=== PATIENT | male | born 1955 | race Caucasian/White ===

== ENCOUNTER 2017-09-01 12:58 | Emergency (ER) | payer OTHER ==
[~2017-09-01] VITALS: Ht 170.2 cm; Wt 65.8 kg
[2017-09-01 13:00] VITALS: TEMP 36.8; Ht 170.2 cm; Wt 65.8 kg
--- NOTE | 2017-09-01 14:03 | DIAGNOSTIC IMAGING REPORT ---
L WRIST MIN 3 VIEWS ROUTINE CLINICAL HISTORY: Fall. Left wrist injury. COMPARISON: None FINDINGS: Note is made of a markedly comminuted mildly displaced distal left radial fracture with intra-articular extension. There is no acute fracture of the distal left ulna. Carpal bones are intact. IMPRESSION: Mildly displaced markedly comminuted distal left radial fracture with intra-articular extension and several associated bone fragments. Electronically signed by: Reuben Phipps M.D. 09/01/2017 2:02 PM Dictated Date/Time: 09/01/2017 2:01 PM
[2017-09-01] MEDS ORDERED: HYDR-5688 PO (14:39)
[2017-09-01 15:02] VITALS: BP 131/76; PULSE 67; O2SAT 97
--- NOTE | 2017-09-02 08:03 | EMERGENCY ROOM VISIT NOTE ---
History First contact with patient: 13:04 Chief Complaint: WRIST PAIN Stated Complaint: WRIST PAIN History of Present Illness The patient is a 62 year old male who presents to the Emergency Room with complaints of left wrist pain for the past 2 days. The patient was evidently at home when he suffered a fall from his porch. He caught himself with his left hand and has had persistent pain since then. He is not complaining of other pain or injury. He is having difficulty opening and closing the hand because of the pain in the wrist. No elbow or shoulder discomfort. He has not had relief with [id number] medication. No previous injury to this extremity. He rates his discomfort a 5/10 that worsens with movement. Review of Systems More than 10 systems were reviewed and otherwise negative with the exception of history of present illness. Past Medical/Surgical History Medical Problems: (1) Bronchitis (2) Pneumonia Family History Patient reports no known family medical history. Social History Smoking Status: Never Smoker Marital Status: Occupation Status: retired Current/Historical Medications Scheduled PRN Hydrocodone/Acetaminophen 5MG/325MG ([place] 5MG/325MG), 1-2 TABLET PO Q6 PRN for Pain Physical Exam Vital Signs Date Time Temp Pulse Resp B/P (MAP) Pulse Ox O2 Delivery O2 Flow Rate FiO2 09/01/17 15:02 67 18 131/76 97 Room Air 09/01/17 13:00 36.8 71 18 130/75 96 Room Air Physical Exam VITALS: Vitals are noted on the nurse's note and reviewed by myself. Vital signs stable. GENERAL: Well-developed, well-nourished, white male, who is in no acute distress and resting comfortably. Patient is cooperative with the examination. HEART: Regular rate and rhythm without murmurs gallops or rubs. LUNGS: Clear to auscultation bilaterally without wheezes, rales or rhonchi. No retractions or accessory muscle use. MUSCULOSKELETAL: Patient is holding his left wrist with his right hand throughout the examination. The distal radius is acutely tender with mild deformity.. The patient has difficulty with range of motion secondary to discomfort. Neurovascular status of the distal hand appears intact. No distinct snuffbox tenderness. No tenderness of the elbow or shoulder. No significant laceration noted . NEURO: Patient was alert and oriented to person place and time. CN II through XII grossly intact. Medical Decision & Procedures ER Provider Diagnostic Interpretation: L WRIST MIN 3 VIEWS ROUTINE CLINICAL HISTORY: Fall. Left wrist injury. COMPARISON: None FINDINGS: Note is made of a markedly comminuted mildly displaced distal left radial fracture with intra-articular extension. There is no acute fracture of the distal left ulna. Carpal bones are intact. IMPRESSION: Mildly displaced markedly comminuted distal left radial fracture with intra-articular extension and several associated bone fragments. ED Course Physical exam and history were performed. Nursing notes, EMR, and Medication List were personally reviewed. Patient appears to have suffered a fall 2 days ago with subsequent injury to his left wrist. On examination he is exquisitely tender with mild deformity. X -ray was obtained and does show a fracture as described above. I discussed the case with on-call orthopedics, Dr Hutchinson, as there is concern the patient may need surgical intervention. Recommendation was for splint, sling, and pain medication. The orthopedic office will be contacting the patient directly this afternoon to arrange an appointment for tomorrow morning. The patient will also be given contact information for orthopedics. He is to see him tomorrow as recommended by orthopedics and was asked to contact the ER for any difficulty with making this appointment. The patient was otherwise invited back to the ER with any new, worsening, or concerning symptoms. The chart was completed utilizing [employer] Speech Voice Recognition Software. Grammatical errors, random word insertions, pronoun errors, and incomplete sentences are an occasional consequence of this system due to software limitations, ambient noise, and hardware issues. Any formal questions or concerns about the content, text, or information contained within the body of this dictation should be directly addressed to the provider for clarification. . Medical Decision Differential diagnosis includes, but is not limited to: Sprain, strain, fracture , dislocation, contusion, and others Blood Pressure Screening Patient's blood pressure: Normal blood pressure Impression Primary Impression: Left wrist fracture Departure Information Dispostion Home / Self-Care Condition GOOD Prescriptions Hydrocodone/Acetaminophen 5MG/325MG ([place] 5MG/325MG) Tab 1-2 TABLET PO Q6 Y for Pain, #15 TAB For Initial Treatment Prov: Luis M Montiel PA-C 09/01/17 Referrals Emigdio Hutchinson MD Forms HOME CARE DOCUMENTATION FORM, IMPORTANT VISIT INFORMATION Patient Instructions My [facility], ED Compartment Syndrome At Risk For, ED RICE Additional Instructions You were seen and evaluated today on an emergency basis only. This is not a substitute for, or an effort to provide, complete comprehensive medical care. It is not possible to recognize and treat all injuries or illnesses in a single emergency department visit. For this reason it is recommended that you followup with [facility] , Dr Hutchinson's Office. The office will try to call you today to make your appointment. For baseline pain relief you may alternate ibuprofen and acetaminophen every 4 hours for pain control. Take 600 mg ibuprofen (Advil) and then 4 hours later take 1000 mg acetaminophen (Tylenol). Do not take more than 3000 mg acetaminophen in a single day. [place] (hydrocodone/acetaminophen) 5/325 mg ONE or TWO every 6 hours as needed for worsening breakthrough pain. Do not drink or drive on [place]. This medication will likely make you tired. Do not take [place] and Tylenol at the same time as both contain acetaminophen. [place] may cause constipation. You may wish to take an fmop-yup-yjqlaso stool softener like Colace if this occurs. Do not get the splint wet. Use your sling for comfort. You are welcome to return to the emergency department anytime with new, worsening, or concerning symptoms.
[2017-09-04] MEDS ORDERED: ACET-1256 PO (12:23)
== END 2017-09-01 15:07 | disposition home or self-care (01) ==
LOC: C.EDB 12:59 → C.EDD 15:07
DX: S52.502A Unspecified fracture of the lower end of left radius, initial encounter for closed fracture (principal); W19.XXXA Unspecified fall, initial encounter; Y92.008 Other place in unspecified non-institutional (private) residence as the place of occurrence of the external cause; Z87.01 Personal history of pneumonia (recurrent)

== ENCOUNTER → 2017-09-08 | Day surgery (SDC) | payer OTHER ==
[2017-09-04 12:23] VITALS: Ht 170.2 cm; Wt 65.5 kg
[~2017-09-08] VITALS: Ht 170.2 cm; Wt 65.5 kg
[~2017-09-08] MED LIST: ACET-1256 PO; ATROPINE SULFATE 0.1 MG/ML 5ML SYR IV PRN; BUPIVACAINE/EPINEPHRINE 0.25% 1:200,000 30 ML VIAL ONE; CEFAZOLIN 2000MG IV PUSH 10 ML IV SCH; DEXAMETHASONE SOD INJ 4 MG/ML VIAL ONE; EpHEDrine SULFATE INJ 50 MG/ML AMP IV PRN; FENTANYL CITRATE INJ 50 MCG/1 ML 2 ML VIAL IV PRN; FENTANYL CITRATE INJ 50 MCG/1 ML 2 ML VIAL ONE; LACTATED RINGER'S 1000ML 1,000 ML IV SCH; LIDOCAINE HCL 2% 2 ML VIAL (20MG/ML) ONE; MIDAZOLAM HCL 1 MG/ML 2ML VIAL ONE; ONDANSETRON INJ 2 MG/ML 2 ML VIAL IV PRN; ONDANSETRON INJ 2 MG/ML 2 ML VIAL ONE; OXYCODONE/ACETAMINOPHEN 5-325 TAB PO PRN; PROMETHAZINE HCL INJ 6.25 MG in SODIUM CHLORIDE 0.9% 50ML 50 ML IV PRN; PROPOFOL IV EMULSION 10 MG/ML 20 ML VIAL IV ONE; SODIUM CHLORIDE 0.9% 1000ML 1,000 ML IV SCH
--- NOTE | 2017-09-08 06:40 | History & Physical Bridge - SC ---
H&P Re-Evaluation Bridge Note: I have examined the patient, reviewed the History & Physical and in the interval since the performance of the History & Physical I have noted the following changes of clinical significance: No changes noted
--- NOTE | 2017-09-08 09:03 | [facility] Post Operative Brief Note ---
Immediate Operative Summary Operative Date Sep 08, 2017. Pre-Operative Diagnosis Left Distal Radius Fracture Post-Operative Diagnosis same as preop Procedure(s) Performed Left Distal Radius Fracture Open Reduction Internal Fixation Surgeon Dr. Hutchinson Cytotechnologist/Cytology Supervisor Surgeon(s) PALMA Huerta Estimated Blood Loss 10ML Findings Fracture reduced and stabilized with a 4 hole DVR plate and screws Specimens none per surgeon Drains None Anesthesia LMA with axillary block Complication(s) None Disposition Recovery Room / PACU
--- NOTE | 2017-09-08 09:20 | [facility] Operative Report ---
Operative Report Operative Date Sep 08, 2017. Pre-Operative Diagnosis Left Distal Radius Fracture Post-Operative Diagnosis same as preop Procedure(s) Performed Left Distal Radius Fracture Open Reduction Internal Fixation Surgeon Dr. Hutchinson Structural Engineering Project Manager Surgeon(s) PALMA Huerta Estimated Blood Loss 10ML Findings na Specimens none per surgeon Complication(s) None Disposition Recovery Room / PACU I attest to the content of the Intraoperative Record and any orders documented therein. Any exceptions are noted below.
--- NOTE | 2017-09-08 09:25 | Discharge Instructions ---
Discharge Instructions Date of Service Sep 08, 2017. Admission Reason for Admission: Left Distal Radius Fracture Discharge Discharge Diagnosis / Problem: Left distal radius fracture Discharge Goals Goal(s): Decrease discomfort, Improve function, Increase independence Activity Recommendations Activity Limitations: as noted below Lifting Limitations: until after follow-up appointment Exercise/Sports Limitations: none May Resume Sexual Activity: after follow-up appointment Shower/Bathe: tomorrow, keep incision dry Driving or Machine Use: No driving until cleared by orthopedic surgeon Weightbearing Status: Left non-weightbearing (Upper extremity) . Instructions / Follow-Up Instructions / Follow-Up Post-operative Instructions Dear Patient and Family/Friends, Before you are discharged from the hospital, it is important to know what to expect when you get home after surgery. To that end, we have created this sheet of discharge instructions which covers many commonly asked questions. Make sure you go through this sheet in its entirety with your nurse before you are discharged. Please note that we will go over the specifics of your surgery and recovery when you return for your first post-operative visit. Sincerely, Dr. Hutchinson Pain Expect to be in a fair amount of pain after surgery. Remember, our goal is not to eliminate your pain, but to make it tolerable. It is a good idea to stay ahead of your pain by taking the medications you were prescribed once you get home. Typically, the pain starts improving 3-7 days after surgery. You should start weaning off the narcotic pain medication (oxycodone, hydrocodone, hydromorphone, morphine) as soon as your pain improves. Please call our office if your pain is not adequately controlled. Ice Ice your operative site at least 5 times a day for 15-30 minutes at a time. Make sure you have a thin cloth between the ice or cooling unit and your skin to prevent santillan bite. This is especially important if you received a nerve block. Continue icing your operative site for the first 5-7 days after surgery , then as needed. Diet/Nausea/Vomiting Start by drinking clear liquids and eating crackers. If you can tolerate this, then you may resume your normal diet. If you feel nauseated or vomit, take Zofran/ondansetron (if prescribed). Please call our office if you have intractable nausea or vomiting, or, if after hours, you may go to the Emergency Room for help. Constipation Constipation is a common side effect of narcotic pain medication. If you have not had a bowel movement within 2 days after surgery, we recommend purchasing an over the counter laxative such as Milk of Magnesia, Dulcolax, or Miralax from a local pharmacy, and taking it as instructed. Call our clinic if any questions. Slings and Braces If you were placed in a sling or brace, it must be worn at all times, including sleep. You may remove your sling or brace for physical therapy, home exercises , and showering. The length of time you will be in your brace and range of motion restrictions depends on what surgery you had; these details will be reviewed at your first post-operative appointment. Nerve block The anesthesia team sometimes places a nerve block to help with post-operative pain control. This results in significant numbness and inability to move the extremity. The nerve block usually wears off in 8-12 hours, but sometimes can last up to 24 hours. Please call our office if you are still unable to move your extremity after 24 hours, unless you received a pain pump to take home. Nerve blocks typically wear off quickly, so start taking pain medication as soon as you start feeling soreness near your surgical site. Weight bearing and Range of Motion. Do not bear any weight through your operative extremity immediately after surgery. If you had upper extremity surgery, do not lift anything with that arm. If you are in a knee brace, keep it locked in place until your follow-up. We will discuss your weight bearing, range of motion, and lifting restrictions in detail at your first post-operative appointment. Continuous Passive Motion (CPM) Machine If you were prescribed a CPM machine, it will start after your first post- operative appointment, at which time we will give you instructions on the range of motion settings and duration of treatment Physical therapy You will be given a prescription for physical therapy or occupational therapy at your first post-operative appointment. Typically, patients start therapy within 1 week of surgery Wound care and showering We will inspect your wound at your first post-operative visit, and may do a dressing change at that time. Most patients will be in a water-proof dressing that is removed 14 days after surgery. It is normal to see some dried blood on the dressing. Do not remove your dressing, paper strips or sutures yourself unless you are given permission. Showering is allowed the day after surgery. Do not scrub or remove any dressings. The wound should not be submerged underwater (i.e. in a bathtub or pool) until 4 weeks after surgery TINY stockings If you were given white stockings, these are to be worn at all times except to shower (on both legs) for the first 2 weeks after surgery. Driving You may not drive while taking narcotic pain medication or while in a cast, splint, sling or brace. You, the patient, need to make the final determination about when you are safe to drive, however, the earliest you may consider driving after surgery is below: Hand/Wrist/Elbow Surgery: 3 days Shoulder Surgery: 2 weeks Hip,/Knee/Ankle Surgery: 4 weeks Fracture repair: 6 weeks Return to Work Your return to work depends on what surgery was done and what type of work you do. Please bring any paperwork your employer needs completed to your first post -operative visit. Also, bring a description of your job duties, as this helps us to understand what risks you may face at work. Travel Avoid long distance travel (greater than 1 hour) in airplanes and cars for the first 6 weeks after surgery. If you must travel, you need to have a Doppler ultrasound done before you travel to rule out a blood clot in your legs. Follow-up You should have a follow-up appointment already scheduled 1-2 days after surgery. If not, please contact our office to make this appointment before you leave the hospital. When to call the office It is normal to have swelling and bruising in the limb that was operated on. This will improve with time. It is also normal to have fevers for the first 2 days after surgery. Reasons you should call your doctor include: Uncontrolled pain; Nausea, vomiting, or constipation that does not improve with medication; Fevers over 101.5, chills, sweats; Drainage or bleeding from the wound; Foul odor; Spreading areas of redness; Any other concerns Current Hospital Diet Patient's current hospital diet: Discharge Diet Recommended Diet: Regular Diet Procedures Procedures Performed: Left Distal Radius Fracture Open Reduction Internal Fixation Pending Studies Studies pending at discharge: no Medical Emergencies . Who to Call and When: Medical Emergencies: If at any time you feel your situation is an emergency, please call 911 immediately. . Non-Emergent Contact Non-Emergency issues call your: Primary Care Provider Call Non-Emergent contact if: you have a fever, temperature is above 101.5, your pain is not controlled, wound has increased drainage, wound has increased pain . "Provider Documentation" section prepared by Moses Wagner. . VTE Core Measure Inpt VTE Proph given/why not?: Other Anticoagulation (Aspirin EC 81 mg daily), T.E.D. Stockings [place] Drug Monitoring Program Search Results: patient reviewed within database, no issues identified, see additional documentation
[2017-09-08 09:54] VITALS: TEMP 36.4
--- NOTE | 2017-09-08 10:04 | OPERATIVE REPORT ---
DATE OF OPERATION: 09/08/2017 PREOPERATIVE DIAGNOSIS: Left distal radius intra-articular fracture. POSTOPERATIVE DIAGNOSIS: Left distal radius intra-articular fracture. OPERATION PERFORMED: ORIF left distal radius fracture. SURGEON: Emigdio Hutchinson MD. PRINCIPAL SOFTWARE ENGINEER: DERRICK Contreras. IMPLANTS: Biomet 4-hole standard with DVR plate with 4 cortical screws and 7 locking fully threaded screws. ANESTHESIA: LMA with axillary nerve block. FLUIDS: 1200 mL crystalloid. ESTIMATED BLOOD LOSS: 10 mL. INDICATIONS: Mr. 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 He sustained a comminuted intra-articular distal radius fracture of the left wrist with shortening and displacement and loss of a normal volar tilt. I had a long discussion with him about the treatment options, risks and benefits of surgery, alternatives to surgery and expected outcomes. After reviewing all these, he elected to proceed with surgery. All questions were answered. Informed consent was signed. OPERATIVE FINDINGS: The fracture was reduced and stabilized with a 4-hole Biomet DVR plate and screws. DESCRIPTION OF PROCEDURE: The patient was identified in the preoperative holding area where his surgical site was marked. He was given an axillary nerve block by anesthesia then brought back to the main operating room, was placed on the operating room table and general anesthesia was administered. All bony prominences were padded. Perioperative antibiotics were administered. He was prepped and draped in the normal sterile fashion. Prior to incision, a multidisciplinary timeout was called. All in the room, in agreement. We began by exsanguinating the limb with an Esmarch bandage. The tourniquet was inflated to 250 mmHg. A 6 cm incision was made overlying the FCR tendon. The tendon sheath was incised with a deep knife. This was extended to the length of the incision. FCR tendon was retracted ulnarly. The floor of the FCR tendon sheath was incised with a deep knife and extended proximally and distally. The flexor musculature was retracted ulnarly. An L-shaped cut was made along the distal and radial aspects of the pronator quadratus which was then subperiosteally elevated ulnarly. The fracture lines were identified. The mini C-arm was brought in. We initially attempted a reduction with simple manual traction with flexion of the wrist and ulnar deviation. However, the fracture had started to heal and was somewhat sticky. We therefore used a Carey through the fracture to lever the dorsal fragments and distal position. Fracture hematoma was excised. We then brought out 0.062 K wire in through the radial styloid which was used to hold the fracture provisionally stabilized. The x-ray was brought back in. We then had a nice reduction of the fracture with scientologist of volar tilt to within normal limits and scientologist of his radial length as well as an excellent scientologist of the articular surfaces. We then placed our 4-hole DVR plate. I decided to use a somewhat longer plate since he had a coronal split fracture which extended proximally. The plate was secured to the bone with K wires. We then checked it under fluoroscopy to ensure the proper position and length. We then placed a proximal cortical screw in bicortical fashion. Once this was secured, all the distal screw holes were filled taking care to ensure that none of the screws extended beyond the dorsal cortex of the wrist. X-ray was brought in to confirm proper screw lengths. Once this was confirmed, we filled the proximal cortical screw holes. X-ray was again brought in to take a final fluoroscopic images which we were very happy with. The wound was then irrigated with normal saline. The deep dermis was closed with 3-0 Vicryl sutures in interrupted fashion. The skin was closed with 3-0 nylons in a horizontal mattress fashion. Sterile dressing was placed with Xeroform, 4 x 4's, sterile cast padding, followed by a volar plaster slab splint. The tourniquet was let down at 87 minutes. The patient was placed into a sling, awoke from anesthesia and transferred to the recovery room in stable condition. POSTOPERATIVE COURSE: The patient will be discharged home from the recovery room. He will follow up in 2 weeks with splint removal and x-rays out of the splint as well as suture removal. Will plan on placing him in a cast at that point. I attest to the content of the Intraoperative Record and any orders documented therein. Any exception s are noted below.
--- NOTE | 2017-09-08 10:45 | Anesthesia Progress Nt - [facility] ---
Anesthesia Post Op Note Date & Time Sep 08, 2017 at 10:45 Vital Signs Pain Intensity: 0 Vital Signs Past 12 Hours Date Time Temp Pulse Resp B/P (MAP) Pulse Ox O2 Delivery O2 Flow Rate FiO2 09/08/17 10:25 76 16 111/63 (79) 97 Room Air 09/08/17 09:56 63 15 09/08/17 09:56 61 15 104/69 95 09/08/17 09:55 60 11 09/08/17 09:55 61 11 09/08/17 09:54 36.4 56 16 104/65 94 Room Air 09/08/17 09:51 104/65 09/08/17 09:50 73 18 09/08/17 09:50 76 18 09/08/17 09:46 94/60 09/08/17 09:45 65 16 09/08/17 09:45 66 16 09/08/17 09:41 109/62 09/08/17 09:40 64 13 09/08/17 09:40 65 13 09/08/17 09:36 99/61 09/08/17 09:35 62 10 09/08/17 09:35 62 10 09/08/17 09:31 98/64 09/08/17 09:30 70 14 09/08/17 09:30 70 14 99 09/08/17 09:29 67 17 99 09/08/17 09:29 67 17 09/08/17 09:26 110/69 09/08/17 09:24 70 10 09/08/17 09:24 69 10 99 09/08/17 09:21 103/62 09/08/17 09:19 36.8 80 12 114/72 98 Diffusion Mask 6 09/08/17 09:19 72 16 09/08/17 09:19 84 16 114/72 99 09/08/17 07:16 112/55 09/08/17 07:12 67 10 09/08/17 07:12 68 10 97 09/08/17 07:11 56 6 09/08/17 07:11 56 6 92/52 98 09/08/17 07:10 57 8 99 09/08/17 07:10 58 8 09/08/17 07:09 51 8 99 09/08/17 07:09 51 8 09/08/17 07:08 60 11 98 09/08/17 07:08 61 11 09/08/17 07:06 89/54 09/08/17 07:03 60 15 99 09/08/17 07:03 60 15 09/08/17 07:01 102/67 09/08/17 06:58 14 09/08/17 06:58 61 14 105/70 09/08/17 06:29 36.8 63 16 111/68 (82) 94 Room Air Notes Mental Status: alert / awake / arousable, participated in evaluation Pt Amnestic to Procedure: Yes Nausea / Vomiting: adequately controlled Pain: adequately controlled Airway Patency, RR, SpO2: stable & adequate BP & HR: stable & adequate Hydration State: stable & adequate Anesthetic Complications: no major complications apparent Block working well in pacu
[2017-09-08 11:06] VITALS: BP 101/63; PULSE 61; O2SAT 97
== END | disposition home or self-care (01) ==
LOC: X.SURG 06:07
PROVIDERS: ATTEND Orthopaedic Surgery
DX: S52.572A Other intraarticular fracture of lower end of left radius, initial encounter for closed fracture (principal); W19.XXXA Unspecified fall, initial encounter; Y93.H3 Activity, building and construction

== ENCOUNTER → 2017-10-21 | Outpatient (CLI) | payer OTHER ==
[~2017-10-21] MED LIST changes: -ATROPINE SULFATE 0.1 MG/ML 5ML SYR IV PRN; -BUPIVACAINE/EPINEPHRINE 0.25% 1:200,000 30 ML VIAL ONE; -CEFAZOLIN 2000MG IV PUSH 10 ML IV SCH; -DEXAMETHASONE SOD INJ 4 MG/ML VIAL ONE; -EpHEDrine SULFATE INJ 50 MG/ML AMP IV PRN; -FENTANYL CITRATE INJ 50 MCG/1 ML 2 ML VIAL IV PRN; -FENTANYL CITRATE INJ 50 MCG/1 ML 2 ML VIAL ONE; -LACTATED RINGER'S 1000ML 1,000 ML IV SCH; -LIDOCAINE HCL 2% 2 ML VIAL (20MG/ML) ONE; -MIDAZOLAM HCL 1 MG/ML 2ML VIAL ONE; -ONDANSETRON INJ 2 MG/ML 2 ML VIAL IV PRN; -ONDANSETRON INJ 2 MG/ML 2 ML VIAL ONE; -OXYCODONE/ACETAMINOPHEN 5-325 TAB PO PRN; -PROMETHAZINE HCL INJ 6.25 MG in SODIUM CHLORIDE 0.9% 50ML 50 ML IV PRN; -PROPOFOL IV EMULSION 10 MG/ML 20 ML VIAL IV ONE; -SODIUM CHLORIDE 0.9% 1000ML 1,000 ML IV SCH
== END | disposition home or self-care (01) ==
LOC: C.RDSM 10:57
PROVIDERS: ATTEND Orthopaedic Surgery
DX: M25.532 Pain in left wrist (principal); Z96.7 Presence of other bone and tendon implants

== ENCOUNTER 2021-09-30 13:24 | Inpatient (IN) ==
[2021-09-30] MEDS ORDERED: SODIUM CHLORIDE 0.9% 1000ML 1,000 ML IV ONE (14:29)
[2021-09-30] MEDS ORDERED: METOCLOPRAMIDE HCL INJ 5 MG/ML 2 ML VIAL IV STA (14:29)
[2021-09-30] MEDS ORDERED: FAMOTIDINE 20MG IV PUSH 20 MG/5 ML SYR IV STA (14:29)
[2021-09-30 14:31] LABS: Hemoglobin 16.4 g/dL (14.0-18.0); Immature Granulocytes # (auto) 0.01 K/uL (0.00-0.02); Immature Granulocytes % (auto) 0.2 %; Lymphocytes # (auto) 0.73 K/uL (1.2-3.4); Lymphocytes % (auto) 12.3 %; Mean Corpuscular Hemoglobin 31.2 pg (25-34); Mean Corpuscular Hgb Conc 34.9 g/dL (32-36); Mean Corpuscular Volume 89.5 fL (80-100); Mean Platelet Volume 8.9 fL (7.4-10.4); Monocytes # (auto) 0.09 K/uL (0.11-0.59); Monocytes % (auto) 1.5 %; Platelet Count 143 K/uL (130-400); RDW Coefficient of Variation 13.2 % (11.5-14.5); RDW Standard Deviation 43.6 fL (36.4-46.3); Red Blood Count 5.25 M/uL (4.7-6.1); White Blood Count 5.93 K/uL (4.8-10.8)
[2021-09-30 14:49] LABS: Alanine Aminotransferase 78 U/L (12-78); Aspartate Aminotransferase 65 U/L (15-37); BUN Creatinine Ratio 10.1 (10-20); Blood Urea Nitrogen 11 mg/dl (7-18); Carbon Dioxide 29 mmol/L (21-32); Chloride 102 mmol/L (98-107); Est GFR (African American) 82.7 ml/min; Est GFR (Non-African American) 71.4 ml/min; Glucose 105 mg/dl (70-99); Lipase 269 U/L (73-393); Magnesium 2.3 mg/dl (1.8-2.4); Sodium 141 mmol/L (136-145)
[2021-09-30 14:54] LABS: Albumin Globulin Ratio 0.7 (0.9-2); Alkaline Phosphatase 66 U/L (45-117); Bilirubin,Total 0.7 mg/dl (0.2-1); Globulin 4.2 gm/dl (2.5-4.0); Total Protein 7.2 gm/dl (6.4-8.2); Troponin I < 0.015 ng/ml (0-0.045)
[2021-09-30] MEDS ORDERED: ACETAMINOPHEN 500 MG TAB PO STA (15:08)
[2021-09-30] MEDS ORDERED: POTASSIUM CHLORIDE / WTR 10 MEQ/100 ML PLCT IV ONE (15:11)
--- NOTE | 2021-09-30 16:10 | XRay Report ---
XR chest 1V portable CLINICAL HISTORY: covid, weak TECHNIQUE: Single frontal radiograph of the chest was obtained. Comparison: Comparison is made to chest one view 09/28/2021 FINDINGS: No lines and tubes are seen. The cardiomediastinal silhouette is normal. Scattered airspace opacities are seen most prominent at the left lung base. There is a small left pleural effusion. IMPRESSION: Left lung base predominant airspace opacities compatible with pneumonia. Small left pleural effusion. ACT 112: Negative or not required by law. Electronically signed by: Robel Chambers M.D. 09/30/2021 4:09 PM
[2021-09-30] MEDS ORDERED: dexAMETHasone**PF** 10 MG/ML VIAL IV ONE (16:23)
[2021-09-30] MEDS ORDERED: ONDANSETRON INJ 2 MG/ML 2 ML VIAL IV STA (16:26)
--- NOTE | 2021-09-30 16:27 | Emergency Department Note ---
Impression & Plan COVID-19 virus infection, Hypokalemia, Nausea, Hypoxia ED Provider Note Provider: Stanley Forbes MD DATE OF SERVICE: 09/30/2021 CHIEF COMPLAINT: Nausea, Covid HISTORY OF PRESENT ILLNESS: Patient is a 66-year-old gentleman diagnosed with Covid 4 days ago here at the hospital approximately 9 days after the start of symptoms who is not vaccinated presenting reporting continued nausea issues. States he is an only able to drink very little amount of the nausea medicine at home is not helping. Reports is not been able to eat much and has had some diarrhea. Denies any blood in this. Reports feeling a little bit short of breath and having some fatigue. States he feels very thirsty and that he is a dry mouth. Patient denies significant abdominal tenderness and reports a little bit of discomfort at times. REVIEW OF SYSTEMS: A total of 10 review of systems was obtained and negative except as stated above in the HPI. PAST MEDICAL HISTORY: As noted above MEDICATIONS: reviewed home medications SOCIAL HISTORY: Patient denies smoking to me currently or ever in the past, Lives at home with granddaughter PHYSICAL EXAM: GENERAL: alert and oriented in no acute distress on stretcher somewhat fatigued appearing Head: normocephalic and atraumatic EYES: No injection, discharge or icterus. NECK: Trachea midline. Supple. ENT: Mucous membranes pink and slightly tacky. LUNGS: Airway patent. No retractions. Breath sounds clear with good air entry bilaterally. HEART: Regular rate and rhythm. No chest wall tenderness ABDOMEN: Soft and non-tender, without guarding or rebound. SKIN: Acyanotic, warm, dry, without rashes EXTREMITIES: Without swelling, tenderness or deformity NEUROLOGICAL: No focal deficits. No aphasia. No facial droop or slurred speech. EK bpm normal sinus rhythm. No PVC or PAC. No acute ST segment elevation. Some baseline artifact with some nonspecific inferior T wave changes. QTC 413. CONTINUOUS CARDIAC MONITORING: was ordered and showed a heart rate of 60s to 70s bpm in normal sinus rhythm Patient's laboratory studies and imaging reviewed. Differential includes Infection, dehydration, metabolic abnormality, hypo/hyperglycemia, electrolyte disturbance, anemia, hypoxia, cardiac sources, intracerebral event, toxicologic, neurologic, as well as other pathologies. IMPRESSION/MEDICAL DECISION MAKING: Reviewed patient's medical record and multiple recent emergency room visits. CT scan abd/pelvis and blood work have been completed in the last week. Blood work is improving today other than hypokalemia and IV supplementation was provided. X-ray with questionable some left basilar findings but given the Covid results and lack of leukocytosis believe this is less likely to be bacterial. Ordered some Tylenol here and Reglan as well as IV fluids initially. Renal function actually appears a bit better again however still with nausea and given some additional Zofran. Will defer oral potassium supplementation given his consistent nausea symptoms at this point. Becomes hypoxic here in the high 80s resting in bed. Denies any history of smoking to me. Not significant tachycardic and lower suspicion that this represents PE and believe likely more related to Covid pneumonia. Given some dexamethasone. Discussed with the pat ient given his continued symptoms, weakness, now some hypoxia with Covid will discuss with the hospitalist for further care here. DIAGNOSIS: COVID-19, hypoxia, nausea, weakness, hypokalemia DISPOSITION: Hospitalist will evaluate Patient was agreeable with this plan. Past Med/Surg History Medical History GERD (gastroesophageal reflux disease) Surgical History History of cholecystectomy Social History Smoking Status: Current every day smoker marital status: current occupational status: employed Feels Safe at Home: Yes Allergies Allergies Allergy/AdvReac Type Severity Reaction Status Date / Time No Known Allergies Allergy Unverified 09/30/21 15:51 Home Meds Home Medications Medication Instructions Recorded Confirmed atorvastatin 10 mg tablet 10 mg PO HS 09/28/21 09/30/21 Previous Rx's Medication Instructions Recorded pantoprazole 40 mg tablet,delayed 40 mg PO BID 30 Days #60 tab 09/26/21 release (Protonix) Results & Data (ED) Vital Signs Vital Signs - 24 hr 09/30/21 13:34 09/30/21 14:49 09/30/21 15:42 Temperature 38 C H Temperature Source Temporal Artery Scan Pulse Rate 71 Pulse Rate [Finger] 60 Pulse Rhythm [Finger] Regular Pulse Strength [Finger] Normal Respiratory Rate 18 16 Respiratory Effort / Characteristics Non-Labored Non-Labored Spontaneous Respiratory Depth Normal Normal Respiratory Pattern Regular Blood Pressure 105/72 Blood Pressure [Left Arm] 124/66 Blood Pressure Mean 83 Blood Pressure Mean [Left Arm] 85 Blood Pressure Position [Left Arm] Semi-fowlers Pulse Oximetry 93 95 89 L Oxygen Delivery Method Room Air Room Air Room Air Nasal Cannula Oxygen Flow Rate 0 Sepsis Recent Fever Within 48 Hours No Sepsis New/Unexplained Change in Mental Status No Sepsis Action Taken by Nursing No Action Required Oxygen Flow Rate - Titration 2 Pulse Oximetry Post Tiitration 94 09/30/21 16:00 09/30/21 18:00 Temperature Temperature Source Pulse Rate Pulse Rate [Finger] 67 66 Pulse Rhythm [Finger] Regular Regular Pulse Strength [Finger] Normal Normal Respiratory Rate 20 20 Respiratory Effort / Characteristics Non-Labored Spontaneous Non-Labored Spontaneous Respiratory Depth Normal Normal Respiratory Pattern Regular Regular Blood Pressure Blood Pressure [Left Arm] 110/66 104/59 L Blood Pressure Mean Blood Pressure Mean [Left Arm] 80 74 Blood Pressure Position [Left Arm] Semi-fowlers Semi-fowlers Pulse Oximetry 94 95 Oxygen Delivery Method Nasal Cannula Room Air Oxygen Flow Rate 2 Sepsis Recent Fever Within 48 Hours Sepsis New/Unexplained Change in Mental Status Sepsis Action Taken by Nursing Oxygen Flow Rate - Titration Pulse Oximetry Post Tiitration Laboratory Data Result diagrams: 09/30/21 14:20 09/30/21 14:20 Lab Results 09/30/21 09/30/21 09/30/21 Range/Units 14:20 14:20 17:28 WBC 5.93 (4.8-10.8) K/uL RBC 5.25 (4.7-6.1) M/uL Hgb 16.4 (14.0-18.0) g/dL Hct 47.0 (42-52) % MCV 89.5 (80-100) fL MCH 31.2 (25-34) pg MCHC 34.9 (32-36) g/dL RDW Std Deviation 43.6 (36.4-46.3) fL RDW Coeff of Vanesa 13.2 (11.5-14.5) % Plt Count 143 (130-400) K/uL MPV 8.9 (7.4-10.4) fL Immature Gran % (Auto) 0.2 % Neut % (Auto) 86.0 % Lymph % (Auto) 12.3 % [place] % (Auto) 1.5 % Eos % (Auto) 0.0 % Baso % (Auto) 0.0 % Neut # (Auto) 5.10 (1.4-6.5) K/uL Lymph # (Auto) 0.73 L (1.2-3.4) K/uL [place] # (Auto) 0.09 L (0.11-0.59) K/uL Eos # (Auto) 0.00 (0-0.5) K/uL Baso # (Auto) 0.00 (0-0.2) K/uL Immature Gran # (Auto) 0.01 (0.00-0.02) K/uL Sodium 141 (136-145) mmol/L Potassium 3.0 L (3.5-5.1) mmol/L Chloride 102 (98-107) mmol/L Carbon Dioxide 29 (21-32) mmol/L Anion Gap 10.0 (3-11) BUN 11 (7-18) mg/dl Creatinine 1.09 (0.6-1.4) mg/dl Est Cr Clr Drug Dosing 64.0 ml/min Est GFR ( Amer) 82.7 ml/min Est GFR (Non-Af Amer) 71.4 ml/min BUN/Creatinine Ratio 10.1 (10-20) Glucose 105 H (70-99) mg/dl Calcium 8.0 L (8.5-10.1) mg/dl Magnesium 2.3 (1.8-2.4) mg/dl Total Bilirubin 0.7 (0.2-1) mg/dl AST 65 H (15-37) U/L ALT 78 (12-78) U/L Alkaline Phosphatase 66 (45-117) U/L Troponin I < 0.015 (0-0.045) ng/ml Total Protein 7.2 (6.4-8.2) gm/dl Albumin 3.0 L (3.4-5.0) gm/dl Globulin 4.2 H (2.5-4.0) gm/dl Albumin/Globulin Ratio 0.7 L (0.9-2) Lipase 269 (73-393) U/L COVID-19 Eval Order Covid19 at [facility] SARS-CoV-2 (PCR) (Negative) 09/30/21 Range/Units 17:28 WBC (4.8-10.8) K/uL RBC (4.7-6.1) M/uL Hgb (14.0-18.0) g/dL Hct (42-52) % MCV (80-100) fL MCH (25-34) pg MCHC (32-36) g/dL RDW Std Deviation (36.4-46.3) fL RDW Coeff of Vanesa (11.5-14.5) % Plt Count (130-400) K/uL MPV (7.4-10.4) fL Immature Gran % (Auto) % Neut % (Auto) % Lymph % (Auto) % [place] % (Auto) % Eos % (Auto) % Baso % (Auto) % Neut # (Auto) (1.4-6.5) K/uL Lymph # (Auto) (1.2-3.4) K/uL [place] # (Auto) (0.11-0.59) K/uL Eos # (Auto) (0-0.5) K/uL Baso # (Auto) (0-0.2) K/uL Immature Gran # (Auto) (0.00-0.02) K/uL Sodium (136-145) mmol/L Potassium (3.5-5.1) mmol/L Chloride (98-107) mmol/L Carbon Dioxide (21-32) mmol/L Anion Gap (3-11) BUN (7-18) mg/dl Creatinine (0.6-1.4) mg/dl Est Cr Clr Drug Dosing ml/min Est GFR ( Amer) ml/min Est GFR (Non-Af Amer) ml/min BUN/Creatinine Ratio (10-20) Glucose (70-99) mg/dl Calcium (8.5-10.1) mg/dl Magnesium (1.8-2.4) mg/dl Total Bilirubin (0.2-1) mg/dl AST (15-37) U/L ALT (12-78) U/L Alkaline Phosphatase (45-117) U/L Troponin I (0-0.045) ng/ml Total Protein (6.4-8.2) gm/dl Albumin (3.4-5.0) gm/dl Globulin (2.5-4.0) gm/dl Albumin/Globulin Ratio (0.9-2) Lipase (73-393) U/L COVID-19 Eval Order SARS-CoV-2 (PCR) POSITIVE A* (Negative) Administered Medications Discontinued Medications Acetaminophen (Acetaminophen 500 Mg Tab) 1,000 mg PO NOW STA Stop: 09/30/21 15:09 Last Admin: 09/30/21 15:27 Dose: 1,000 mg Documented by: [id number] Dexamethasone Sodium Phosphate (DexamethasonePf 10 Mg/Ml Vial) 6 mg IV NOW ONE Stop: 09/30/21 16:24 Last Admin: 09/30/21 17:19 Dose: 6 mg Documented by: [id number] Famotidine (Pepcid 20mg Iv Push) 20 mg in 5 mls @ 2.5 mls/min IV NOW STA Stop: 09/30/21 14:30 Last Admin: 09/30/21 14:56 Dose: 2.5 mls/min Documented by: [id number] Sodium Chloride (Nss 1000ml) 1,000 mls @ 999 mls/hr IV .Q1H1M ONE Stop: 09/30/21 15:29 Last Infusion: 09/30/21 17:15 Dose: 0 mls/hr Documented by: [id number] Admin: 09/30/21 14:54 Dose: 999 mls/hr Documented by: [id number] Potassium Chloride (K Nelson / Wtr) 10 meq in 100 mls @ 100 mls/hr IV ONE ONE Stop: 09/30/21 16:10 Last Infusion: 09/30/21 17:16 Dose: 0 mls/hr Documented by: [id number] Admin: 09/30/21 15:30 Dose: 100 mls/hr Documented by: [id number] Metoclopramide HCl (Metoclopramide Hcl Inj 5 Mg/Ml 2 Ml Vial) 10 mg IV NOW STA Stop: 09/30/21 14:30 Last Admin: 09/30/21 14:54 Dose: 10 mg Documented by: [id number] Ondansetron HCl (Ondansetron Inj 2 Mg/Ml 2 Ml Vial) 4 mg IV NOW STA Stop: 09/30/21 16:27 Last Admin: 09/30/21 17:18 Dose: 4 mg Documented by: [id number] Potassium Chloride (Potassium Chloride Crtab 20 Meq Tabcr) 40 meq PO NOW STA Stop: 09/30/21 16:52 Last Admin: 11/14/21 17:16 Dose: 40 meq Documented by: [id number] Imaging Data Radiologist's Impression: Chest X-Ray 09/30/21 15:49 XR chest 1V portable CLINICAL HISTORY: covid, weak TECHNIQUE: Single frontal radiograph of the chest was obtained. Comparison: Comparison is made to chest one view 09/28/2021 FINDINGS: No lines and tubes are seen. The cardiomediastinal silhouette is normal. Sc attered airspace opacities are seen most prominent at the left lung base. There is a small left pleural effusion. IMPRESSION: Left lung base predominant airspace opacities compatible with pneumonia. Small left pleural effusion. ACT 112: Negative or not required by law. Electronically signed by: Robel Chambers M.D. 09/30/2021 4:09 PM Discharge Plan Visit Data Chief Complaint: Vomiting Stated Complaint: NAUSEA AND VOMITING ED Provider: Stanley Forbes Discharge Problem: COVID-19 virus infection, Hypokalemia, Nausea, Hypoxia Patient Disposition: Being Evaluated by Hospitalist Forms Stand Alone Forms: My [facility] [address] Prescriptions Prescriptions: No Action atorvastatin 10 mg tablet 10 mg PO HS RF: 0 pantoprazole [Protonix] 40 mg tablet,delayed release (DR/EC) 40 mg PO BID 30 Days Qty: 60 RF: 0 Referrals Referrals: [facility],Hospital [Primary Care Provider] -
--- NOTE | 2021-09-30 16:36 | History & Physical Report ---
Date of Service September 30, 2021 Assessment & Plan (1) COVID-19 virus infection: Plan: Acute hypoxic respiratory failure 2/2 Covid pneumonia Unvaccinated Hypoxic to 89% on room air, multiple admissions in prior week Patient with downtrending transaminitis on day 9, defer remdesivir on risk- benefit ratio and minimal benefit on day 9 Admit to observation Continue dexamethasone 6 mg IV Troponin negative CRP pending (2) Multifocal pneumonia: Plan: -Covid positive treatment as above (3) Nausea & vomiting: Plan: -Patient continues to be febrile at day 9 of illness, slight worsening of nausea/vomiting while his other symptoms have leveled off/improved. Tender to palpation on right and lower quadrant of abdomen without rebound/peritoneal signs. CTabdomen pending No leukocytosis (4) Hypokalemia: Plan: Hypokalemia 3.0 on admission Magnesium normal Repletion ordered Creatinine normal BMP daily (5) GERD (gastroesophageal reflux disease): Plan: GERD Continue PPI plus famotidine Plan: Hyperlipidemia Continue atorvastatin 10 mg p.o. nightly DVT prophylaxis: COVID Lovenox Diet: Regular Disposition: Medical/surgical Covid History of Present Illness Primary Care Provider: [facility] Per ER: Day 9 COVID Unvaccinated low K AST/ALT improving (prior elevated) CXR p Nausea Hypox 89 on RA +Diarrhea, +nausea with 1x non bloody emesis. +nausea assessment Feels that shortness of breath has been persistent, a little bit worse. He feels his anorexia and abdominal pain have worsened, he is not able to tolerate anything to eat or drink by mouth. Has developed worsening right lower, and umbilical abdominal tenderness to palpation. Denies chest pain, chest pressure, lightheadedness, dizziness, palpitations, numbness, tingling, bloody bowel movements, hematemesis, melena, syncope. Medical History: Reviewed Medications: Reviewed Surgical History: Reviewed Allergies: Reviewed Social History: Reviewed, denies tobacco/EtoH/Rec drugs. COVID unvaccinated Code Status: Full Allergies Allergy/AdvReac Type Severity Reaction Status Date / Time No Known Allergies Allergy Unverified 09/30/21 15:51 Home Medications Medication Instructions Recorded Confirmed Type pantoprazole 40 mg tablet,delayed 40 mg PO BID 30 Days #60 tab 09/26/21 09/30/21 Rx release (Protonix) atorvastatin 10 mg tablet 10 mg PO HS 09/28/21 09/30/21 History Past Med/Surg History Medical History GERD (gastroesophageal reflux disease) Surgical History History of cholecystectomy Social History Smoking Status: Current every day smoker marital status: current occupational status: employed Feels Safe at Home: Yes Review of Systems Review of Systems: All systems reviewed & are unremarkable except as noted in Subjective Physical Exam Physical Exam: General: A&Ox3. NAD. Cooperative. HEENT: Atraumatic, normocephalic. Vision/hearing grossly intact Pulm: Moderate air movement, diffusely coarse. Symmetrical chest rise. No increase work of breathing. No respiratory distress. Cardiac: RRR, -mrg. Radial pulses intact and symmetrical. Abdominal:TTP at RLQ and umilicus w/o rebound. BS intact. Extremities: Warm, dry. Moving all extremities equally. Sensation to soft touch intact in hands and feet. Results & Data Results & Data ([facility]) Vital Signs (Past 12 Hours) Vital Signs Temp Pulse Pulse Resp BP BP Pulse Ox 09/30/21 15:42 89 L 09/30/21 14:49 60 16 124/66 95 09/30/21 13:34 38 C H 71 18 105/72 93 PG Care Time/CCT Total # of Minutes Spent Total Time Spent with Patient: Total time spent is greater than 50% in coordination of care (as documented) at patient's floor/unit and/or counseling patient: Coding Level of Care Code 45232 Initial Inpt Care Lvl 3 Diagnoses COVID-19 virus infection U07.1 Multifocal pneumonia J18.9 Nausea & vomiting R11.2 Hypokalemia E87.6 GERD (gastroesophageal reflux disease) K21.9
[2021-09-30] MEDS ORDERED: POTASSIUM CHLORIDE CRTAB 20 MEQ TABCR PO STA (16:51)
[2021-09-30] MEDS ORDERED: ALBUT/IPRATROP 3MG/0.5MG NEB 3 ML VIAL NEB PRN (16:56)
[2021-09-30] MEDS ORDERED: ONDANSETRON INJ 2 MG/ML 2 ML VIAL IV PRN (22:51)
[2021-09-30] MEDS: PANTOprazole 40 MG TAB PO SCH (23:19)
[2021-09-30] MEDS: ATORVASTATIN 10 MG TAB PO SCH (23:19)
[2021-09-30] MEDS: ENOXAPARIN INJ 40 MG/0.4 ML SYR SQ SCH (23:19)
[2021-09-30] MEDS: POTASSIUM CHLORIDE CRTAB 20 MEQ TABCR PO SCH (23:19)
[2021-10-01] MEDS ORDERED: OPTIRAY 320 100ml IV ONE (00:16)
--- NOTE | 2021-10-01 05:54 | Electrocardiogram Report ---
Test Reason : Blood Pressure : / mmHG Vent. Rate : 070 BPM Atrial Rate : 070 BPM P-R Int : 118 ms QRS Dur : 086 ms QT Int : 392 ms P-R-T Axes : 056 037 066 degrees QTc Int : 423 ms Poor data quality, interpretation may be adversely affected Sinus rhythm Nonspecific T wave abnormality When compared with ECG of 28-SEP-2021 19:41, Nonspecific T wave abnormality now evident in Lateral leads Confirmed by Moise Candelario ([id number]) on 10/01/2021 5:53:52 AM Referred By: REFERRED SELF Confirmed By:Moise Candelario
--- NOTE | 2021-10-01 07:53 | CT Scan Report ---
CT SCAN OF THE ABDOMEN AND PELVIS WITH IV CONTRAST CLINICAL HISTORY: Generated abdominal pain. Anorexia. Vomiting. Covid. COMPARISON STUDY: Abdominal CT dated 09/26/2021. TECHNIQUE: Following the IV administration of 93 cc of Optiray 320, CT scan of the abdomen and pelvi s is performed from the lung bases to the proximal femora. Images are reviewed in the axial, sagittal , and coronal planes. IV contrast was administered without complication. A dose lowering technique wa s utilized adhering to the principles of ALARA. The examination is modestly degraded by motion artifa ct. CT DOSE: 288.98 mGy.cm FINDINGS: Lung bases: The heart is normal in size and without pericardial effusion. Subpleural groundglass cons olidation is present at the lung bases. Trace pleural effusion is seen on the right. There is a small hiatal hernia. Liver: The contrast-enhanced liver is normal in size, contour, and attenuation. Focal fatty infiltrat ion is seen adjacent to the falciform ligament. There is no intrahepatic biliary ductal dilatation. T he hepatic veins and portal veins are patent. Gallbladder: Surgically absent noting clips in the gallbladder fossa. Spleen: Normal in size and attenuation. Pancreas: Unremarkable. Adrenal glands: Unremarkable. Kidneys: The contrast enhanced kidneys are normal in size and without hydronephrosis. The kidneys enh ance symmetrically. There is nonspecific bilateral perinephric stranding. Abdominal vasculature: The abdominal aorta is normal in course and caliber. Bowel: There are scattered colonic diverticula without CT evidence of acute diverticulitis. No bowel obstruction is seen. Duodenal diverticula are noted. The appendix is well-visualized and normal. Peritoneum: No intraperitoneal free air is identified. A small volume of free fluid is seen in the pe lvis. There is a small fat-containing umbilical hernia. Lymphadenopathy: None. Pelvic viscera: The prostate gland is mildly enlarged and heterogeneous. The bladder and seminal vesi cles are normal as visualized. There are small bilateral fat-containing inguinal hernias. Skeletal structures: There is mild lumbosacral spondylosis. No lytic or blastic lesions are seen. IMPRESSION: 1. A small volume of free fluid in the pelvis is nonspecific and may be reactive. This is new from . 2. Mild subpleural groundglass consolidation is seen at both lung bases and would be consistent with the reported history of a viral pneumonitis. This is similar to 09/26/2021. 3. Bilateral perinephric stranding is nonspecific but new from 09/26/2021. Correlate with clinical fi ndings and urinalysis. 4. A trace right pleural effusion is new from previous. 5. Additional findings as above. ACT 112: Negative or not required by law. Electronically signed by: Pola Sutton M.D. 10/01/2021 7:52 AM
[2021-10-01] MEDS: dexAMETHasone 6 MG in SYRINGE 0 ML IV SCH (08:09)
[2021-10-01] MEDS: ENOXAPARIN INJ 40 MG/0.4 ML SYR SQ SCH ×2 (08:09→20:32)
[2021-10-01] MEDS: PANTOprazole 40 MG TAB PO SCH ×2 (08:09→20:33)
[2021-10-01] MEDS: POTASSIUM CHLORIDE CRTAB 20 MEQ TABCR PO SCH ×3 (08:09→20:33)
[2021-10-01 10:11] LABS: Hematocrit (blood only) 44.6 % (42-52); Hemoglobin 15.6 g/dL (14.0-18.0); Mean Corpuscular Hemoglobin 31.1 pg (25-34); Mean Corpuscular Volume 88.8 fL (80-100); Mean Platelet Volume 9.2 fL (7.4-10.4); Platelet Count 153 K/uL (130-400); RDW Coefficient of Variation 13.4 % (11.5-14.5); RDW Standard Deviation 44.3 fL (36.4-46.3); Red Blood Count 5.02 M/uL (4.7-6.1); White Blood Count 5.83 K/uL (4.8-10.8)
[2021-10-01 10:39] LABS: Albumin Level 2.3 gm/dl (3.4-5.0); BUN Creatinine Ratio 16.8 (10-20); Bilirubin Direct 0.2 mg/dl (0-0.2); Bilirubin,Total 0.6 mg/dl (0.2-1); C Reactive Protein 7.97 mg/dl (0-0.29); Calcium 7.8 mg/dl (8.5-10.1); Creatinine Clr Calc Pharmacy 89.5 ml/min; Est GFR (African American) 110.6 ml/min; Est GFR (Non-African American) 95.4 ml/min; Potassium 3.7 mmol/L (3.5-5.1)
[2021-10-01] MEDS: ATORVASTATIN 10 MG TAB PO SCH (20:34)
--- NOTE | 2021-10-01 21:36 | Hospitalist Progress Note ---
Date of Service October 01, 2021 Assessment & Plan (1) COVID-19 virus infection: Plan: Acute hypoxic respiratory failure 2/2 Covid pneumonia Unvaccinated toleratng 2 L nasal cannula. Patient with downtrending transaminitis on day 10, defer remdesivir on risk-benefit ratio and minimal benefit on day 9 Admit to observation Continue dexamethasone 6 mg IV Troponin negative CRP pending (2) Multifocal pneumonia: Plan: -Covid positive treatment as above (3) Nausea & vomiting: Plan: improved No leukocytosis (4) Hypokalemia: Plan: Hypokalemia 3.0 on admission Magnesium normal Repletion ordered Creatinine normal BMP daily (5) GERD (gastroesophageal reflux disease): Plan: GERD Continue PPI plus famotidine Plan: Hyperlipidemia Continue atorvastatin 10 mg p.o. nightly DVT prophylaxis: COVID Lovenox Diet: Regular Disposition: Medical/surgical Covid Admission and Anticipated Discharge Date Admission Date: September 30, 2021 Subjective Patient reports tolerating 2 L nasal cannula Review of Systems Review of Systems: All systems reviewed & are unremarkable except as noted in HPI & below Physical Exam Physical Exam: General: A&Ox3. NAD. Cooperative. HEENT: Atraumatic, normocephalic. Vision/hearing grossly intact Pulm: Moderate air movement, diffusely coarse. Symmetrical chest rise. No increase work of breathing. No respiratory distress. Cardiac: RRR, -mrg. Radial pulses intact and symmetrical. Abdominal:NTP. BS intact. Extremities: Warm, dry. Moving all extremities equally. Sensation to soft touch intact in hands and feet. Results & Data Results & Data ([facility]) Vital Signs (Past 12 Hours) Vital Signs Temp Pulse Resp BP Pulse Ox 10/01/21 17:19 36.4 C L 74 16 123/78 92 10/01/21 09:34 36.6 C 63 16 122/76 91 PG Care Time/CCT Total # of Minutes Spent Total Time Spent with Patient: Total time spent is greater than 50% in coordination of care (as documented) at patient's floor/unit and/or counseling patient: Coding Level of Care Code 30379 Subseq Hosp Care Lvl 2 Diagnoses COVID-19 virus infection U07.1 Multifocal pneumonia J18.9 Nausea & vomiting R11.2 Hypokalemia E87.6 GERD (gastroesophageal reflux disease) K21.9 Time Spent (min) 25
[2021-10-01] MEDS: ACETAMINOPHEN 325 MG TAB PO PRN (23:18)
[2021-10-02] MEDS: dexAMETHasone 6 MG in SYRINGE 0 ML IV SCH (08:39)
[2021-10-02] MEDS: ENOXAPARIN INJ 40 MG/0.4 ML SYR SQ SCH (08:39)
[2021-10-02] MEDS: POTASSIUM CHLORIDE CRTAB 20 MEQ TABCR PO SCH ×2 (08:40→13:10)
[2021-10-02] MEDS: PANTOprazole 40 MG TAB PO SCH (08:40)
[2021-10-02] MEDS: ACETAMINOPHEN 325 MG TAB PO PRN (11:27)
--- NOTE | 2021-10-02 15:24 | Discharge Summary ---
Date of Service October 02, 2021 Admission HPI Per Admitting Provider Per ER: Day 9 COVID Unvaccinated low K AST/ALT improving (prior elevated) CXR p Nausea Hypox 89 on RA +Diarrhea, +nausea with 1x non bloody emesis. +nausea assessment Feels that shortness of breath has been persistent, a little bit worse. He feels his anorexia and abdominal pain have worsened, he is not able to tolerate anything to eat or drink by mouth. Has developed worsening right lower, and umbilical abdominal tenderness to palpation. Denies chest pain, chest pressure, lightheadedness, dizziness, palpitations, numbness, tingling, bloody bowel movements, hematemesis, melena, syncope. Medical History: Reviewed Medications: Reviewed Surgical History: Reviewed Allergies: Reviewed Social History: Reviewed, denies tobacco/EtoH/Rec drugs. COVID unvaccinated Code Status: Full Principal Diagnosis COVID 19 PNEUMONIA Discharge Exam General: A&Ox3. NAD. Cooperative. HEENT: Atraumatic, normocephalic. Vision/hearing grossly intact Pulm: Moderate air movement, diffusely coarse. Symmetrical chest rise. No increase work of breathing. No respiratory distress. Cardiac: RRR, -mrg. Radial pulses intact and symmetrical. Abdominal: mildly tender to palpation. BS intact. Extremities: Warm, dry. Moving all extremities equally. Sensation to soft touch intact in hands and feet. Discharge Data Allergies Allergy/AdvReac Type Severity Reaction Status Date / Time No Known Allergies Allergy Unverified 09/30/21 15:51 Consultations 09/30/21 16:41 ED Decision to Admit Stat 10/02/21 14:10 Burn CD for patient Stat Ordered Studies 09/30/21 22:51 CT abd pelvis IV con only Urgent Hospital Course (1) COVID-19 virus infection: Acute hypoxic respiratory failure 2/2 Covid pneumonia Unvaccinated -Now on 4 L nasal cannula Patient with downtrending transaminitis on day 11 -Defer remdesevir as patient arrived on day 9 of illness Admit to observation Continue dexamethasone 6 mg. received 3 doses in the AM already. 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 Abdominal pain has improved. (2) Multifocal pneumonia: -Covid positive treatment as above (3) Nausea & vomiting: improved No leukocytosis (4) Hypokalemia: Hypokalemia 3.0 on admission Magnesium normal Repletion ordered Creatinine normal BMP daily (5) GERD (gastroesophageal reflux disease): GERD Continue PPI plus famotidine Hyperlipidemia Continue atorvastatin 10 mg p.o. nightly DVT prophylaxis: COVID Lovenox Diet: Regular Disposition: Medical/surgical Covid Total Time Total Time Spent Total Time Spent (In Minutes): 32 Discharge Plan Discharge Items Patient Disposition: Transfer [facility] Reason For Visit: COVID, HYPOXIA, ABD PAIN Discharge Diagnosis: COVID pneumonia Activity: Resume your previous activity Non-emergency contact: Primary Care Provider Call non-emergency contact if: you have any medication questions Follow-up/Referrals: [facility] [Primary Care Provider] - Diet: Regular Addtl Attending Provider Instructions: You will be transferred to [facility]. Pending Studies at Discharge: No Stand-Alone Forms: My [facility] Skilled Items Patient informed of condition?: Yes DNR: No Discharge Level of Care: Other Communicable Disease: Yes Discharge Prognosis: Stable Lines: None Urinary Catheter: No Medications and DC Order Prescriptions: New dexamethasone 6 mg tablet 6 mg PO DAILY Qty: 7 RF: 0 Continued atorvastatin 10 mg tablet 10 mg PO HS RF: 0 pantoprazole [Protonix] 40 mg tablet,delayed release (DR/EC) 40 mg PO BID 30 Days Qty: 60 RF: 0 Discharge Orders: Discharge Order (Routine); Ordered 10/02/21 Ordered By: Trae Wong Admission Data Admit Date/Time: 09/30/21 16:51 Attending Provider: Trae Wong Admit Provider: Emigdio Warner Primary Care Provider: [facility] Other Providers: Emigdio Warner Other Interventions: Discharge Summary Assessment (RN) Last Done: 10/02/21 14:42 Coding Level of Care Code D/C DAY MANAGEMENT >30 MINS Diagnoses COVID-19 virus infection U07.1 Multifocal pneumonia J18.9 Nausea & vomiting R11.2 Hypokalemia E87.6 GERD (gastroesophageal reflux disease) K21.9
== END 2021-10-02 15:49 | DRG 177 ==
LOC: ED 13:24 → 2N 16:51 → SUATTDRO 16:51 → 2N 22:17